=== PATIENT | female | born 1955 | race Caucasian/White ===

== ENCOUNTER → 2017-10-25 08:42 | Outpatient (CLI) | payer BC | END | disposition home or self-care (01) | LOC: D.CN 08:42 | DX: R20.2 Paresthesia of skin (principal) ==

== ENCOUNTER 2018-04-23 08:00 | Outpatient (CLI) | payer BC | END 2018-04-23 12:01 | disposition home or self-care (01) | LOC: D.MAMMO 08:00 | DX: Z12.31 Encounter for screening mammogram for malignant neoplasm of breast (principal) ==

== ENCOUNTER 2020-07-01 14:43 | Outpatient (CLI) | payer BC | END 2020-07-01 23:59 | disposition home or self-care (01) | LOC: D.MAMMO 14:43 | PROVIDERS: ATTEND Emergency Medicine | DX: Z12.31 Encounter for screening mammogram for malignant neoplasm of breast (principal) ==